=== PATIENT | male | born 1975 | race Caucasian/White ===

== ENCOUNTER 2021-06-08 02:09 | Emergency (ER) | payer BC ==
[~2021-06-08] VITALS: Ht 180.3 cm; Wt 127.0 kg
[2021-06-08 02:31] LABS: BILIRUBIN Negative (Negative); BLOOD Trace-Intact (Negative); CLARITY Clear (Clear); COLOR Yellow (Yellow); GLUCOSE Negative (Negative); KETONE Negative (Negative); LEUKO ESTERASE Negative (Negative); NITRITE Negative (Negative)
[2021-06-08 02:39] LABS: WBC 0-2 wbc/hpf (0-5)
[2021-06-08 03:17] LABS: BASO # 0.1 10*3/uL (0.0-0.1); BASO % 0.7 % (0.0-1.0); EOS # 0.3 10*3/uL (0.0-0.4); EOS % 2.4 % (1.0-4.0); HEMATOCRIT 43.6 % (42.0-52.0); LYMPH % 28.4 % (27.0-41.0); MEAN CELL VOLUME 92.8 fl (80.0-94.0); MEAN CORPUSCULAR HGB 31.5 pg (27.0-31.0); MEAN CORPUSCULAR HGB CONC 33.9 g/dl (33.0-37.0); MEAN PLATELET VOLUME 11.6 fl (9.6-12.3); MONO # 0.7 10*3/uL (0.1-1.0); MONO % 6.3 % (3.0-9.0); NEUT # 6.6 10*3/uL (2.3-7.9); NEUT % 61.8 % (47.0-73.0); PLATELET COUNT AUTOMATED 257 10*3/uL (130-400); RED CELL DISTRI WIDTH 12.8 % (0-14.5); WHITE BLOOD COUNT 10.7 10*3/uL (4.8-10.8)
[2021-06-08 03:32] LABS: ALBUMIN 3.7 gm/dl (3.1-4.5); ALKALINE PHOSPHATASE 98 U/L (45-117); BUN 13 mg/dl (7-24); CHLORIDE 112 mmol/L (98-107); CREATININE 0.91 mg/dL (0.70-1.30); POTASSIUM 3.4 mmol/L (3.5-5.1); SGOT/AST 19 IU/L (3-35); SGPT/ALT 41 U/L (12-78); SODIUM 142 mmol/L (136-145); TOTAL PROTEIN 6.6 gm/dL (6.4-8.2)
== END 2021-06-08 06:30 | disposition home or self-care (01) ==
LOC: ED 02:09
PROVIDERS: Emergency Medicine
DX: R10.9 Unspecified abdominal pain (principal); M54.5 Low back pain; R11.0 Nausea; E11.9 Type 2 diabetes mellitus without complications; F17.200 Nicotine dependence, unspecified, uncomplicated; Z87.442 Personal history of urinary calculi

== ENCOUNTER 2023-05-20 22:57 | Emergency (ER) | payer MEDICAID ==
[~2023-05-20] VITALS: Ht 180.3 cm; Wt 111.1 kg
[2023-05-20] MEDS ORDERED: CETIRIZINE HYDR10 MG PO (23:09)
[2023-05-20] MEDS ORDERED: ALLOPURINOL100 MG PO (23:09)
[2023-05-20] MEDS ORDERED: OMEPRAZOLE40 MG PO (23:09)
[2023-05-20] MEDS ORDERED: METFORMIN XR500 MG PO (23:09)
[2023-05-20] MEDS ORDERED: LISINOPRIL10 M1 PO (23:09)
[2023-05-20] MEDS ORDERED: SERTRALINE HYD100 MG PO (23:09)
[2023-05-20] MEDS ORDERED: ATORVASTATIN CA40 M1 PO (23:10)
[2023-05-20] MEDS ORDERED: ARNUITY ELLIPT50 MCG INH (23:10)
[2023-05-20] MEDS ORDERED: PREDNISONE20 M1 PO (23:18)
[2023-05-20] MEDS ORDERED: AMOX-CLAV 875-1 EACH PO (23:18)
== END 2023-05-21 00:46 | disposition home or self-care (01) ==
LOC: ED 22:57
DX: H66.91 Otitis media, unspecified, right ear (principal); R51.9 Headache, unspecified; R09.81 Nasal congestion; R05.9 Cough, unspecified; K21.9 Gastro-esophageal reflux disease without esophagitis; Z88.8 Allergy status to other drugs, medicaments and biological substances